=== PATIENT | male | born 1935 | race Caucasian/White ===

== ENCOUNTER → 2016-06-28 | Outpatient (CLI) | payer MEDICARE ==
--- NOTE | 2016-06-28 10:02 | US ---
EXAMINATION TYPE: US abdomen complete DATE OF EXAM: 06/28/2016 9:14 AM COMPARISON: NONE CLINICAL HISTORY: R10.9 ABD Pain. Increase in gas, NPO EXAM MEASUREMENTS: Liver Length: 15.6 cm Gallbladder Wall: 0.4 cm CHD: 0.3 cm Spleen: 10.0 cm Right Kidney: 9.4 x 4.6 x 4.8 cm Left Kidney: 8.9 x 4.4 x 5.8 cm Pancreas: Obscured by bowel gas Liver: wnl as visualized Gallbladder: Thickened wall Evidence for sonographic Moon's sign: neg CHD: wnl Spleen: wnl as visualized Right Kidney: wnl Left Kidney: wnl Upper IVC: seen Abd Aorta: Mid not seen due to overlying bowel gas IMPRESSION: 1. Gallbladder wall is markedly thickened 4 mm. No gallstones. Consider follow-up with HIDA scan if c oncern for chronic cholecystitis.
== END | disposition home or self-care (01) ==
LOC: RADUSWWP 08:43
PROVIDERS: ATTEND Family Medicine
DX: R93.3 Abnormal findings on diagnostic imaging of other parts of digestive tract (principal); R10.9 Unspecified abdominal pain
CPT/HCPCS: 76700

== ENCOUNTER 2024-08-29 11:03 | Day surgery (SDC) | payer MEDICARE ==
[2024-08-27 11:47] VITALS: BMI 23.2
--- NOTE | 2024-08-28 19:24 | HP ---
HISTORY AND PHYSICAL CHIEF COMPLAINT: Fluid in the right ear. HISTORY OF PRESENT ILLNESS: This patient is an 89-year-old male, who was recently seen in my office complaining of having a plugged sensation in his right ear. At the time that the patient was seen in the office, clinical examination revealed a chronic right serous otitis media. A place was placed on a course of oral steroids and was rechecked in 2 weeks. At that time, there was no improvement and it was therefore recommended that the patient undergo a right myringotomy with insertion of a ventilation tube on IV sedation. PAST MEDICAL HISTORY: Reveals he has no allergies to medications. PAST SURGICAL HISTORY: Previous surgeries include appendectomy, bilateral cataract surgery, back surgery, and TURP. CURRENT MEDICATIONS: Include; 1. Claritin. 2. Flonase. 3. Verapamil. REVIEW OF SYSTEMS: Reveals; CARDIOVASCULAR SYSTEM: Positive for hypertension. Remainder of the review of systems is unremarkable. PHYSICAL EXAMINATION: GENERAL: This patient is an 89-year-old male, who is alert and cooperative. HEENT: The patient is normocephalic. Examination of the patient's right ear reveals fluid in the right middle ear space. Pupils are equal, round, and reactive to light and accommodation. Extraocular movements are within normal limits. Intranasal examination reveals [id number] septal deviation with compensatory hypertrophy of the inferior turbinates and mild amount of mucus on the mucous membrane draining down the posterior pharynx. The remainder of the head and neck exam is unremarkable. CHEST/CARDIOVASCULAR: Lung nixon are clear. The patient is in regular sinus rhythm. S1 and S2 are present without evidence of any murmurs. Peripheral pulses are bilaterally symmetrical. ABDOMEN: There is no evidence any masses, megaly or tenderness. The abdomen is soft. MUSCULOSKELETAL/NEUROLOGICAL: Within normal limits. RECTAL: Exam is deferred at this time because the patient has done on a regular basis at his family physician's office. The remainder of physical exam is essentially unremarkable. IMPRESSION: Chronic right serous otitis media. PLAN: The patient is scheduled to undergo a right myringotomy with insertion of ventilation tube on IV sedation with MAC in the a.m. Attention, RNs in the pre-surgical area I have not ordered any pre-surgical prophylactic antibiotics for this patient. If the pharmacy department sends any pre- surgical prophylactic antibiotics to the pre-surgical area for this patient, please cancel that order and return the medication to the pharmacy department. Also make sure that the patient's account is credited appropriately. I have discussed the risks, benefits and alternative therapies for the above-mentioned procedure and for both sedation/analgesia as well as necessary blood product administration, if indicated, as they pertain to this patient. The patient has indicated his understanding and acceptance of the risks and procedures discussed. HERBIE / AWA: [id number] /
[~2024-08-29 11:03] MED LIST: Pre Op ABX Message 1 EACH MISC MISCELLANE ONE
[2024-08-29] MEDS: IV FLUID CONTINUATION 1,000 ML IV ONE (11:42)
[2024-08-29 12:05] VITALS: TEMP 98.8
[2024-08-29] MEDS ORDERED: DEXAMETHASONE SOD PHOSPHATE 10 MG/ML 1 ML VIAL ONE (12:15)
[2024-08-29] MEDS ORDERED: PROPOFOL 10 MG/ML 20 ML VIAL IV ONE (12:15)
[2024-08-29] MEDS: OFLOXACIN 0.3% OPHTH DROPS 5 ML BOTTLE RIGHT EAR ONE (12:28)
[2024-08-29] MEDS: EPINEPHrine (PF) 1 MG/ML AMP MISCELLANE ONE (12:47)
[2024-08-29 13:34] VITALS: BP 171/80; PULSE 60; RESP 17
--- NOTE | 2024-09-01 23:51 | OP ---
OPERATIVE REPORT DATE OF SERVICE : 08/29/2024 PREOPERATIVE DIAGNOSIS: Chronic right serous otitis media. POSTOPERATIVE DIAGNOSIS: Chronic right serous otitis media. ANESTHESIA: IV sedation with MAC, eventually converted to a general anesthetic with an LMA tube. OPERATION: Attempted right myringotomy with insertion of ventilation tube, aborted and converted to a simple right myringotomy. 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 Therefore, it was not possible to insert a ventilation tube, however, a right myringotomy was performed and the fluid was suctioned from the right middle ear space. ESTIMATED BLOOD LOSS: Less than 0.5 mL. NARRATIVE: The patient was placed on the operating table in supine position. After uneventful induction and IV sedation, satisfactory sedation was obtained. Next, the patient's right ear was draped in usual customary fashion. Next, using the Ze[employer] operating microscope and a #3 aural speculum, the right external auditory canal was cleansed of all wax debris. Immediately, it was noted that the patient had osteomas of the external auditory canal, which made it difficult to visualize the entire right tympanic membrane. Various sizes of oral speculums, including pediatric size were tried, but none could fit past the blockage caused by the osteomas. During the procedure because it was somewhat extended time, it was necessary to convert the patient from an IV sedation to a general anesthetic using a LMA. Having converted this patient to general anesthesia, this allowed the patient to be better controlled with the anesthesia. Apparently, because of the patient's history of heavy smoking, the IV sedation was not adequate to keep him sedated and movement free. Therefore, using the myringotomy knife, an incision was made in the anterior-inferior quadrant of the right tympanic membrane through one of the pediatric aural speculums. Multiple attempts to insert a pediatric Tytan ventilation tube failed. Two pediatric Tytan ventilation tubes were left lodged in the external auditory canal, but not in the right middle ear space. The right middle ear space was suctioned free of all fluid and the myringotomy incision was extended to allow for appropriate drainage. Therefore, a ventilation tube was never inserted into the patient's right tympanic membrane due to the osteomas. The osteomas prevented safe visualization of the entire tympanic membrane and also made it difficult to manipulate the tube into proper position. At this point, procedure was terminated. The patient tolerated the procedure well and was returned to recovery room in satisfactory condition. HERBIE / AWA: [id number] /
== END 2024-08-29 13:47 | disposition home or self-care (01) ==
LOC: OR 11:03
PROVIDERS: ATTEND Otolaryngology
DX: H65.21 Chronic serous otitis media, right ear (principal); I10 Essential (primary) hypertension
CPT/HCPCS: 69421; J1100; J2704; J0166